=== PATIENT | female | born 1995 | race Two or more races ===

== ENCOUNTER 2021-08-24 05:51 | Emergency (ER) | payer OTHER ==
[2021-08-24 06:35] VITALS: BP 113/67; PULSE 88; TEMP 98; BMI 25.8
[2021-08-24] MEDS ORDERED: TETRACAINE 0.5% HCL 0.6ML DROPPER.BOTTLE OD ONE (07:27)
[2021-08-24] MEDS ORDERED: TETRACAINE 0.5% OPHTH SOLN 2 ML BOTTLE ONE (07:29)
== END 2021-08-24 07:54 | disposition home or self-care (01) ==
LOC: JER 05:51
DX: H10.31 Unspecified acute conjunctivitis, right eye (principal)
CPT/HCPCS: 99283-25